=== PATIENT | male | born 1945 | race Caucasian/White ===

== ENCOUNTER → 2017-07-15 | Outpatient (CLI) | payer MEDICARE ==
--- NOTE | 2017-07-15 15:26 | REP ---
Clinical: Follow-up pulmonary nodules. Comparison: 05/08/2016. Findings: The lung louise are well-aerated and again demonstrate mild emphysematous changes along with minimal scattered stable scarring primarily involving the medial right middle lobe. The previously identified nodules measuring up to 4 mm are unchanged in size. No new nodule, mass or consolidation is appreciated. No pleural effusion/reaction or pneumothorax. No obvious adenopathy. Tracheobronchial tree is patent. Mediastinum demonstrates mild atherosclerotic changes to the thoracic aorta. No evidence for cardiomegaly or pericardial effusion. Limited evaluation of the upper abdomen demonstrates normal bilateral adrenal glands. The surrounding musculoskeletal structures are without focal osseous abnormality. Impression: 1. Few scattered small densities are unchanged in size and no new lesions are appreciated. A minuscule 2 mm densities in the left hemithorax demonstrates central calcification and these findings likely represent sequelae of prior granulomas disease and scarring. 2. No acute or significant mediastinal or pleuroparenchymal process appreciated. Signed by Tavares Hoskins MD 07/15/2017 03:17 P
== END ==
LOC: M RAD 14:24
PROVIDERS: ATTEND Internal Medicine Pulmonary Disease
DX: R91.8 Other nonspecific abnormal finding of lung field (principal)

== ENCOUNTER → 2017-09-15 | Outpatient (CLI) | payer MEDICARE ==
[2017-09-15 13:44] LABS: ALBUMIN 3.9 GM/DL (3.2-5.2); ALKALINE PHOSPHATASE 68 U/L (45-117); ALT/SGPT 33 U/L (12-78); ANION GAP 6 MEQ/L (8-16); AST/SGOT 23 U/L (7-37); BILIRUBIN,TOTAL 0.8 MG/DL (0.2-1.0); BLOOD UREA NITROGEN 19 MG/DL (7-18); CALCIUM LEVEL 9.2 MG/DL (8.8-10.2); CARBON DIOXIDE LEVEL 29 MEQ/L (21-32); CHLORIDE LEVEL 110 MEQ/L (98-107); CHOLESTEROL LEVEL 237 MG/DL (<200); CREATININE FOR GFR 1.04 MG/DL (0.70-1.30); GLOMERULAR FILTRATION RATE > 60.0 (>42); GLUCOSE, FASTING 95 MG/DL (83-110); POTASSIUM SERUM 5.1 MEQ/L (3.5-5.1); SODIUM LEVEL 145 MEQ/L (136-145); TOTAL PROTEIN 6.5 GM/DL (6.4-8.2); TRIGLYCERIDES LEVEL 151 MG/DL (<150)
== END ==
LOC: M WUC 08:48
PROVIDERS: ATTEND Emergency Medicine
DX: E78.2 Mixed hyperlipidemia (principal)

== ENCOUNTER → 2018-09-21 | Outpatient (CLI) | payer MEDICARE ==
[2018-09-21 09:17] LABS: ALBUMIN 3.6 GM/DL (3.2-5.2); ALBUMIN/GLOBULIN RATIO 1.09 (1.00-1.93); ALKALINE PHOSPHATASE 95 U/L (45-117); ALT/SGPT 28 U/L (12-78); ANION GAP 5 MEQ/L (8-16); AST/SGOT 19 U/L (7-37); BILIRUBIN,TOTAL 0.8 MG/DL (0.2-1.0); BLOOD UREA NITROGEN 14 MG/DL (7-18); CALCIUM LEVEL 9.1 MG/DL (8.8-10.2); CARBON DIOXIDE LEVEL 30 MEQ/L (21-32); CHLORIDE LEVEL 107 MEQ/L (98-107); CHOLESTEROL LEVEL 206 MG/DL (<200); CHOLESTEROL RISK RATIO 3.961 (<5); CREATININE FOR GFR 1.03 MG/DL (0.70-1.30); GLOMERULAR FILTRATION RATE > 60.0 (>42); GLUCOSE, FASTING 103 MG/DL (70-100); HDL CHOLESTEROL 52 MG/DL (>40); LDL CHOLESTEROL 123 MG/DL (<100); NON-HDL-C 154 MG/DL; POTASSIUM SERUM 4.3 MEQ/L (3.5-5.1); SODIUM LEVEL 142 MEQ/L (136-145); TOTAL PROTEIN 6.9 GM/DL (6.4-8.2); TRIGLYCERIDES LEVEL 156 MG/DL (<150)
== END ==
LOC: M WUC 08:16
DX: E78.2 Mixed hyperlipidemia (principal)
CPT/HCPCS: 80053

== ENCOUNTER → 2018-10-04 | Outpatient (CLI) | payer MEDICARE ==
[2018-10-04 12:43] LABS: BASO % 0.6 % (0.0-1.0); EOS # 0.2 10^3/uL (0.0-0.50); EOS % 3.7 % (0.0-3.0); HEMATOCRIT 38.3 % (42.0-52.0); HEMOGLOBIN 12.2 g/dl (13.5-17.5); IMMATURE GRANULOCYTE % 0.3 % (0-3.0); LYMPH # 1.8 10^3/uL (1.5-4.5); LYMPH % 28.1 % (24.0-44.0); MEAN CORPUSCULAR HEMOGLOBIN 27.7 pg (27.0-33.0); MEAN CORPUSCULAR HGB CONC 31.9 g/dl (32.0-36.5); MONO # 0.5 10^3/uL (0.0-0.8); MONO % 6.9 % (0.0-5.0); NEUTROPHILS # 3.9 10^3/uL (1.8-7.7); NEUTROPHILS % 60.4 % (36.0-66.0); PLATELET COUNT, AUTOMATED 300 10^3/uL (150-450); RED CELL DISTRIBUTION WIDTH 14.6 % (11.5-14.5); WHITE BLOOD COUNT 6.5 10^3/uL (4.0-10.0)
== END ==
LOC: M WUC 10:24
DX: J44.9 Chronic obstructive pulmonary disease, unspecified (principal)
CPT/HCPCS: 85025

== ENCOUNTER → 2018-10-05 | Outpatient (CLI) | payer MEDICARE ==
[2018-10-05 16:39] LABS: FERRITIN 137 NG/ML (26-388); IRON (FE) 68 UG/DL (65-175); PERCENT SATURATION 19.5 % (19.7-50.0); TOTAL IRON BINDING CAPACITY 349 UG/DL (250-450)
[2018-10-05 16:47] LABS: FOLATE 13.1 NG/ML; VITAMIN B12 LEVEL 559 PG/ML
== END ==
LOC: M WUC 11:46
DX: D64.9 Anemia, unspecified (principal)
CPT/HCPCS: 82746

== ENCOUNTER → 2018-12-01 | Outpatient (CLI) | payer MEDICARE ==
--- NOTE | 2018-12-01 17:03 | REP ---
Chest x-ray: Two views. History: Cough. Comparison chest CT study is from July 15, 2017. Findings: In the interval since the prior study a cardiac valve prosthesis appears to have been inserted. There is no evidence of sternotomy however. The lungs are somewhat hyperinflated but free of infiltrate. Mild linear fibrosis is seen in the bases bilaterally. Pulmonary vasculature is not increased. Pleural angles are sharp. Heart size is normal. There are degenerative changes in the thoracic spine. Impression: No active disease. Electronically Signed by Giovanny Cruz MD 12/01/2018 05:30 P
== END ==
LOC: M SMT 14:57
PROVIDERS: ATTEND Internal Medicine Pulmonary Disease
DX: R05 Cough (principal)

== ENCOUNTER → 2018-12-07 | Outpatient (CLI) | payer MEDICARE ==
[2018-12-07 12:44] LABS: BLOOD UREA NITROGEN 20 MG/DL (7-18); CREATININE FOR GFR 1.12 MG/DL (0.70-1.30); GLOMERULAR FILTRATION RATE > 60.0 (>42)
== END ==
LOC: M WUC 10:05
PROVIDERS: ATTEND Internal Medicine Pulmonary Disease
DX: R05 Cough (principal)

== ENCOUNTER → 2018-12-13 | Outpatient (CLI) | payer MEDICARE ==
[~2018-12-13] MED LIST: METHACHOLINE KIT (J7674) INH ONE
--- NOTE | 2018-12-13 14:28 | PFTRPT ---
Site: [facility], [address] [place], [address] ID: [id number] Name: BEVERLY PALMA Visit Date: 12/13/2018 Second ID: [id number] Referring Doctor: Júnior WALTERS, Anna Soria Reviewing Doctor: Edson Robles MD [facility] Faculty Assistant: Joao STINSON, JEANETTE Age: 73 : 1945 Sex: Male Race: Height: 72.00 Inches Weight: 219.00 Lbs BSA: 2.21 Order IDs: [id number] Requested Test(s): <RESP-PFT.BROCHOPROV> Diagnosis: R05 test appear to be valid, although the ATS standard for "end of test" was not met. Pt was given eight puffs of albuterol for post bronchodilator. Review Status: Not Reviewed Pre-Bronch Post-Bronch Pred Actual %Pred Actual %Chng SPIROMETRY FVC (L) 4.61 3.60 77 3.27 -9 FEV1 (L) 3.36 2.06 61 1.87 -9 FEV1/FVC (%) 73 57 78 57 FEF 25% (L/sec) 7.45 3.27 43 2.93 -10 FEF 50% (L/sec) 4.12 1.14 27 0.74 -34 FEF 75% (L/sec) 1.18 0.29 24 0.20 -31 FEF 25-75% (L/sec) 2.46 0.78 31 0.54 -30 FEF Max (L/sec) 8.38 6.22 74 5.67 -8 FIVC (L) 3.45 2.63 -23 FIF 50% (L/sec) 4.35 4.78 109 3.32 -30 FIF Max (L/sec) 4.88 4.54 -6 Expiratory Time (sec) 8.74 8.07 -7 Back Extrap Vol (L) 0.05 0.06 20 Time To FEFmax (sec) 0.064 0.067 4
== END ==
LOC: M CARPUL 09:01
PROVIDERS: ATTEND Internal Medicine Pulmonary Disease
DX: R05 Cough (principal)
CPT/HCPCS: 94070; 95070; J7674

== ENCOUNTER → 2018-12-15 | Outpatient (CLI) | payer MEDICARE ==
[~2018-12-15] MED LIST changes: +ISOVUE-370 76% 100ML VIAL (Q9967) As Ordered ONE; -METHACHOLINE KIT (J7674) INH ONE
--- NOTE | 2018-12-16 05:39 | REP ---
Clinical: Cough. Technique: Axial contrast enhanced images from the thoracic inlet to the upper abdomen with coronal and sagittal re-formations using 100 ml Isovue 370 intravenous contrast material. Comparison: 07/15/2017, 08/01/2015. Findings: Scattered areas of scarring at the bilateral apices and lung bases remain unchanged. Early moderate emphysematous changes to the upper lobes noted. Few scattered calcified and noncalcified nodular lesions up to 5 mm remains stable and most compatible with chronic granulomatous changes. No acute consolidation, significant nodule or mass lesion. No pleural effusion. No pneumothorax. Tracheobronchial tree is patent. No axillary, hilar, or mediastinal adenopathy. The mediastinum demonstrates atherosclerotic changes to the thoracic aorta and coronary arteries without aortic aneurysm/dissection, cardiomegaly or pericardial effusion. Surrounding musculoskeletal structures are intact. Limited upper abdomen demonstrates a stable nodular appearance to the bilateral adrenal glands along with incompletely imaged left renal hypodensity suggesting cyst. Impression: 1. Findings suggest chronic changes related to granulomatous disease early mild upper lobe emphysematous changes and scattered chronic scarring. 2. No acute mediastinal or pleuroparenchymal process. Electronically Signed by Tavares Hoskins MD 12/16/2018 05:31 A
== END ==
LOC: M RAD 10:38
PROVIDERS: ATTEND Internal Medicine Pulmonary Disease
DX: R05 Cough (principal)
CPT/HCPCS: 71260; Q9967

== ENCOUNTER → 2019-09-12 | Outpatient (CLI) | payer MEDICARE ==
[2019-09-12 13:09] LABS: BLOOD UREA NITROGEN 21 MG/DL (7-18); CALCIUM LEVEL 9.5 MG/DL (8.8-10.2); CARBON DIOXIDE LEVEL 31 MEQ/L (21-32); CHLORIDE LEVEL 106 MEQ/L (98-107); CHOLESTEROL LEVEL 211 MG/DL (<200); CHOLESTEROL RISK RATIO 3.576 (<5); GLOMERULAR FILTRATION RATE > 60.0 (>42); GLUCOSE, FASTING 90 MG/DL (70-100); HDL CHOLESTEROL 59 MG/DL (>40); LDL CHOLESTEROL 120 MG/DL (<100); NON-HDL-C 152 MG/DL; POTASSIUM SERUM 4.4 MEQ/L (3.5-5.1); SODIUM LEVEL 141 MEQ/L (136-145); TRIGLYCERIDES LEVEL 161 MG/DL (<150)
[2019-09-12 13:11] LABS: HEMATOCRIT 41.3 % (42.0-52.0); HEMOGLOBIN 13.3 g/dl (13.5-17.5); MEAN CORPUSCULAR HEMOGLOBIN 30.8 pg (27.0-33.0); MEAN CORPUSCULAR HGB CONC 32.2 g/dl (32.0-36.5); MEAN CORPUSCULAR VOLUME 95.6 fl (80.0-96.0); PLATELET COUNT, AUTOMATED 225 10^3/uL (150-450); RED BLOOD COUNT 4.32 10^6/uL (4.30-6.10); WHITE BLOOD COUNT 6.8 10^3/uL (4.0-10.0)
== END ==
LOC: M WUC 11:17
PROVIDERS: ATTEND Nurse Practitioner Family
DX: I34.0 Nonrheumatic mitral (valve) insufficiency (principal); E78.00 Pure hypercholesterolemia, unspecified

== ENCOUNTER → 2019-09-12 | Outpatient (CLI) | payer MEDICARE ==
[2019-09-12 13:12] LABS: ALBUMIN 3.9 GM/DL (3.2-5.2); ALT/SGPT 33 U/L (12-78); BILIRUBIN,TOTAL 1.1 MG/DL (0.2-1.0); BLOOD UREA NITROGEN 21 MG/DL (7-18); CALCIUM LEVEL 9.3 MG/DL (8.8-10.2); CARBON DIOXIDE LEVEL 30 MEQ/L (21-32); CHLORIDE LEVEL 106 MEQ/L (98-107); CHOLESTEROL LEVEL 196 MG/DL (<200); CHOLESTEROL RISK RATIO 3.629 (<5); CREATININE FOR GFR 1.15 MG/DL (0.70-1.30); GLOMERULAR FILTRATION RATE > 60.0 (>42); GLUCOSE, FASTING 88 MG/DL (70-100); HDL CHOLESTEROL 54 MG/DL (>40); LDL CHOLESTEROL 110 MG/DL (<100); NON-HDL-C 142 MG/DL; POTASSIUM SERUM 4.4 MEQ/L (3.5-5.1); SODIUM LEVEL 141 MEQ/L (136-145); TOTAL PROTEIN 6.7 GM/DL (6.4-8.2); TRIGLYCERIDES LEVEL 160 MG/DL (<150)
== END ==
LOC: M WUC 11:21
PROVIDERS: ATTEND Physician Assistant
DX: Z00.00 Encounter for general adult medical examination without abnormal findings (principal); E78.2 Mixed hyperlipidemia

== ENCOUNTER → 2020-08-28 | Outpatient (CLI) | payer MEDICARE ==
[2020-08-28 11:16] LABS: BASO % 0.6 % (0.0-1.0); EOS # 0.1 10^3/uL (0.0-0.5); HEMATOCRIT 44.2 % (42.0-52.0); LYMPH # 1.8 10^3/uL (1.5-5.0); LYMPH % 26.3 % (24.0-44.0); MEAN CORPUSCULAR HEMOGLOBIN 30.6 pg (27.0-33.0); MEAN CORPUSCULAR HGB CONC 31.7 g/dl (32.0-36.5); MEAN CORPUSCULAR VOLUME 96.5 fl (80.0-96.0); MONO # 0.5 10^3/uL (0.0-0.8); MONO % 7.7 % (0.0-5.0); NEUTROPHILS # 4.4 10^3/uL (1.5-8.5); NEUTROPHILS % 63.1 % (36.0-66.0); PLATELET COUNT, AUTOMATED 219 10^3/uL (150-450); RED BLOOD COUNT 4.58 10^6/uL (4.30-6.10)
[2020-08-28 12:01] LABS: ALBUMIN 4.1 GM/DL (3.2-5.2); ALT/SGPT 40 U/L (12-78); BILIRUBIN,TOTAL 0.9 MG/DL (0.2-1.0); BLOOD UREA NITROGEN 14 MG/DL (7-18); CALCIUM LEVEL 9.5 MG/DL (8.8-10.2); CARBON DIOXIDE LEVEL 28 MEQ/L (21-32); CHLORIDE LEVEL 109 MEQ/L (98-107); CHOLESTEROL LEVEL 183 MG/DL (<200); CHOLESTEROL RISK RATIO 3.155 (<5); CREATININE FOR GFR 1.08 MG/DL (0.70-1.30); GLOMERULAR FILTRATION RATE > 60.0 (>42); GLUCOSE, FASTING 81 MG/DL (70-100); HDL CHOLESTEROL 58 MG/DL (>40); LDL CHOLESTEROL 96 MG/DL (<100); NON-HDL-C 125 MG/DL; SODIUM LEVEL 143 MEQ/L (136-145); TOTAL PROTEIN 7.1 GM/DL (6.4-8.2); TRIGLYCERIDES LEVEL 147 MG/DL (<150)
== END ==
LOC: M WUC 08:34
PROVIDERS: ATTEND Family Medicine
DX: J44.9 Chronic obstructive pulmonary disease, unspecified (principal); E78.5 Hyperlipidemia, unspecified; I10 Essential (primary) hypertension

== ENCOUNTER → 2020-11-13 | Outpatient (CLI) | payer MEDICARE ==
[2020-11-13 16:23] LABS: FREE T4 1.12 NG/DL (0.76-1.46); RHEUMATOID FACTOR QUANT < 10.0 IU/ML (<15.0); THYROID STIMULATING HORMONE 0.883 uIU/ML (0.358-3.740); TOTAL PROTEIN 6.6 GM/DL (6.4-8.2); VITAMIN B12 LEVEL 560 PG/ML
[2020-11-13 16:24] LABS: FOLATE > 24.0 NG/ML
[2020-11-13 16:37] LABS: HEMOGLOBIN A1c 5.3 %
[2020-11-14 15:43] LABS: ALBUMIN % 63.6 % (55.8-66.1); ALPHA-1-GLOBULIN % 4.9 % (2.9-4.9); ALPHA-1-GLOBULINS 0.32 GM/DL (0.17-0.41); ALPHA-2-GLOBULINS 0.69 GM/DL (0.42-0.99); ALPHA-2-GLOBULINS % 10.4 % (7.1-11.8); BETA-1-GLOBULINS 0.42 GM/DL (0.28-0.60); BETA-1-GLOBULINS % 6.3 % (4.7-7.2); BETA-2-GLOBULINS 0.27 GM/DL (0.19-0.55); BETA-2-GLOBULINS % 4.1 % (3.2-6.5); GAMMA GLOBULIN % 10.7 % (11.1-18.8); GAMMA GLOBULINS 0.71 GM/DL (0.65-1.58)
== END ==
LOC: M WUC 11:34
PROVIDERS: ATTEND Psychiatry & Neurology Neurology
DX: E07.9 Disorder of thyroid, unspecified (principal); G90.09 Other idiopathic peripheral autonomic neuropathy; R20.2 Paresthesia of skin

== ENCOUNTER → 2021-01-22 | Outpatient (CLI) | payer MEDICARE ==
--- NOTE | 2021-01-22 10:59 | REP ---
INDICATION: ABNORMAL FINDING OF LUNG FIELD. COMPARISON: Chest CT studies dated 07/15/2017 and 12/15/2018. TECHNIQUE: Chest CT without IV contrast. FINDINGS: There is a 4 mm left upper lobe lung nodule on image 44, unchanged from prior studies. There is a 5 mm right lower lobe lung nodule on image 66, unchanged from the prior studies. There is a 3 mm right lower lobe lung nodule on image 67, unchanged from the prior studies. There is a 5 mm pleural-based right lower lobe lung nodule on image 68, unchanged from the prior studies. No new nodules are identified. No enlarging nodules are identified. There are no acute infiltrates or pleural effusions. There are scattered small bulla throughout the lung louise bilaterally. There is no mediastinal or axillary lymph node enlargement. In the absence of IV contrast the study is insensitive for hilar lymph node enlargement. The thoracic aorta is unremarkable except for occasional calcified atheroma. The cardiac size is normal. There is no pericardial effusion. There appears to be a mitral valve replacement. Upper abdomen: There is no adrenal mass or nodule. The visualized areas of the unenhanced liver, gallbladder, pancreas and spleen are unremarkable. IMPRESSION: There are 4 stable lung nodules as described in the body of the report. There are no new lung nodules. There are no enlarging lung nodules. No infiltrates or effusions. Mitral valve replacement. <Electronically signed by Walt Dickinson > 01/22/21 [id number]
== END ==
LOC: M RAD 09:14
PROVIDERS: ATTEND Internal Medicine Pulmonary Disease
DX: R91.8 Other nonspecific abnormal finding of lung field (principal); Z95.4 Presence of other heart-valve replacement

== ENCOUNTER → 2021-05-13 | Outpatient (CLI) | payer MEDICARE ==
[2021-05-13 10:59] LABS: ALBUMIN 3.8 GM/DL (3.2-5.2); ALT/SGPT 56 U/L (12-78); BILIRUBIN,TOTAL 1.5 MG/DL (0.2-1.0); BLOOD UREA NITROGEN 14 MG/DL (7-18); CALCIUM LEVEL 8.9 MG/DL (8.8-10.2); CARBON DIOXIDE LEVEL 25 MEQ/L (21-32); CHLORIDE LEVEL 110 MEQ/L (98-107); CHOLESTEROL LEVEL 144 MG/DL (<200); CHOLESTEROL RISK RATIO 2.028 (<5); CREATININE FOR GFR 0.97 MG/DL (0.70-1.30); GLOMERULAR FILTRATION RATE > 60.0 (>42); GLUCOSE, FASTING 98 MG/DL (70-100); HDL CHOLESTEROL 71 MG/DL (>40); LDL CHOLESTEROL 59 MG/DL (<100); NON-HDL-C 73 MG/DL; POTASSIUM SERUM 4.1 MEQ/L (3.5-5.1); SODIUM LEVEL 143 MEQ/L (136-145); TOTAL PROTEIN 6.5 GM/DL (6.4-8.2); TRIGLYCERIDES LEVEL 68 MG/DL (<150)
== END ==
LOC: M WUC 08:04
PROVIDERS: ATTEND Nurse Practitioner Family
DX: E78.00 Pure hypercholesterolemia, unspecified (principal)

== ENCOUNTER → 2021-09-05 | Outpatient (CLI) | payer MEDICARE ==
[2021-09-05 09:52] LABS: BASO # 0.1 10^3/uL (0.0-0.2); BASO % 0.8 % (0.0-1.0); EOS # 0.1 10^3/uL (0.0-0.5); EOS % 1.9 % (0.0-3.0); HEMATOCRIT 41.3 % (42.0-52.0); HEMOGLOBIN 13.6 g/dl (13.5-17.5); LYMPH % 27.6 % (24.0-44.0); MEAN CORPUSCULAR HEMOGLOBIN 31.3 pg (27.0-33.0); MEAN CORPUSCULAR HGB CONC 32.9 g/dl (32.0-36.5); MEAN CORPUSCULAR VOLUME 94.9 fl (80.0-96.0); MONO # 0.5 10^3/uL (0.0-0.8); MONO % 7.1 % (2.0-8.0); NEUTROPHILS # 4.5 10^3/uL (1.5-8.5); NEUTROPHILS % 62.3 % (36.0-66.0); PLATELET COUNT, AUTOMATED 203 10^3/uL (150-450); RED BLOOD COUNT 4.35 10^6/uL (4.30-6.10); WHITE BLOOD COUNT 7.2 10^3/uL (4.0-10.0)
[2021-09-05 10:18] LABS: ALBUMIN 3.8 GM/DL (3.2-5.2); ALT/SGPT 50 U/L (12-78); BILIRUBIN,TOTAL 0.9 MG/DL (0.2-1.0); BLOOD UREA NITROGEN 19 MG/DL (7-18); CALCIUM LEVEL 9.2 MG/DL (8.8-10.2); CARBON DIOXIDE LEVEL 32 MEQ/L (21-32); CHLORIDE LEVEL 107 MEQ/L (98-107); CHOLESTEROL LEVEL 162 MG/DL (<200); CHOLESTEROL RISK RATIO 2.492 (<5); CREATININE FOR GFR 1.05 MG/DL (0.70-1.30); GLOMERULAR FILTRATION RATE > 60.0 (>42); GLUCOSE, FASTING 99 MG/DL (70-100); HDL CHOLESTEROL 65 MG/DL (>40); LDL CHOLESTEROL 80 MG/DL (<100); NON-HDL-C 97 MG/DL; POTASSIUM SERUM 4.4 MEQ/L (3.5-5.1); SODIUM LEVEL 142 MEQ/L (136-145); TOTAL PROTEIN 6.6 GM/DL (6.4-8.2); TRIGLYCERIDES LEVEL 84 MG/DL (<150)
== END ==
LOC: M WUC 08:25
PROVIDERS: ATTEND Family Medicine
DX: I10 Essential (primary) hypertension (principal); J44.9 Chronic obstructive pulmonary disease, unspecified; I34.0 Nonrheumatic mitral (valve) insufficiency

== ENCOUNTER → 2022-04-23 | Outpatient (CLI) | payer MEDICARE ==
[~2022-04-23] MED LIST changes: +ASPI81TA27 PO; +BREO1INH3 INH; +IBUP-1114 PO; -ISOVUE-370 76% 100ML VIAL (Q9967) As Ordered ONE; +MULTTAB86 PO; +ROSU20TA5 PO; +TAMS1CAP17 PO
== END ==
LOC: M LABSMTC 09:18
PROVIDERS: ATTEND Anesthesiology
DX: Z01.818 Encounter for other preprocedural examination (principal); Z11.52 Encounter for screening for COVID-19

== ENCOUNTER → 2022-04-28 | Outpatient (CLI) | payer MEDICARE ==
[2022-04-28 16:08] LABS: BASO # 0.1 10^3/uL (0.0-0.2); BASO % 0.7 % (0.0-1.0); EOS # 0.1 10^3/uL (0.0-0.5); EOS % 1.9 % (0.0-3.0); HEMATOCRIT 41.5 % (42.0-52.0); HEMOGLOBIN 13.3 g/dl (13.5-17.5); LYMPH % 26.8 % (24.0-44.0); MEAN CORPUSCULAR HEMOGLOBIN 30.9 pg (27.0-33.0); MEAN CORPUSCULAR VOLUME 96.3 fl (80.0-96.0); MONO # 0.5 10^3/uL (0.0-0.8); MONO % 7.1 % (2.0-8.0); NEUTROPHILS # 4.7 10^3/uL (1.5-8.5); NEUTROPHILS % 63.2 % (36.0-66.0); PLATELET COUNT, AUTOMATED 194 10^3/uL (150-450); RED BLOOD COUNT 4.31 10^6/uL (4.30-6.10); WHITE BLOOD COUNT 7.4 10^3/uL (4.0-10.0)
[2022-04-28 16:47] LABS: ALBUMIN 3.9 GM/DL (3.2-5.2); ALT/SGPT 34 U/L (12-78); BLOOD UREA NITROGEN 23 MG/DL (7-18); CALCIUM LEVEL 8.7 MG/DL (8.8-10.2); CARBON DIOXIDE LEVEL 28 MEQ/L (21-32); CHLORIDE LEVEL 106 MEQ/L (98-107); CREATININE FOR GFR 1.07 MG/DL (0.70-1.30); GLOMERULAR FILTRATION RATE > 60.0 (>42); GLUCOSE, FASTING 81 MG/DL (70-100); POTASSIUM SERUM 4.2 MEQ/L (3.5-5.1); SODIUM LEVEL 142 MEQ/L (136-145); TOTAL PROTEIN 6.6 GM/DL (6.4-8.2)
== END ==
LOC: M WUC 11:31
PROVIDERS: ATTEND Family Medicine
DX: Z01.818 Encounter for other preprocedural examination (principal); K40.90 Unilateral inguinal hernia, without obstruction or gangrene, not specified as recurrent; R10.32 Left lower quadrant pain

== ENCOUNTER → 2022-05-25 | Outpatient (CLI) | payer MEDICARE | LOC: M LABSMTC 09:36 | PROVIDERS: ATTEND Anesthesiology | DX: Z01.812 Encounter for preprocedural laboratory examination (principal) ==

== ENCOUNTER 2022-05-29 07:55 | Day surgery (SDC) | payer MEDICARE ==
[~2022-05-29] VITALS: Ht 188 cm; Wt 86.5 kg
[~2022-05-29 07:55] MED LIST changes: +NS 1,000 ML IV ONE; +ceFAZolin SOD 2 GM in IV 1 EA IV ONE
[2022-05-29] MEDS ORDERED: LR 1,000 ML IV SCH ×2 (08:20→12:45)
[2022-05-29] MEDS ORDERED: BUPIVACAINE/EPIN 0.25% 30 ML VIAL As Ordered ONE (10:21)
[2022-05-29] MEDS ORDERED: LIDOCAINE 2% 100MG/5ML SDV (FOR ANES.) As Ordered ONE (11:14)
[2022-05-29] MEDS ORDERED: SUGAMMADEX SODIUM 500 MG/5 ML VIAL (BRIDION) As Ordered ONE (11:14)
[2022-05-29] MEDS ORDERED: ONDANSETRON 4MG 2ML VIAL As Ordered ONE (11:14)
[2022-05-29] MEDS ORDERED: MIDAZOLAM INJ 2MG/2ML VIAL (J2250 PER 1MG) As Ordered ONE (11:14)
[2022-05-29] MEDS ORDERED: fentaNYL 100 MCG/2 ML INJECTION As Ordered ONE ×2 (11:14→11:26)
[2022-05-29] MEDS ORDERED: propofoL 200 MG/20 ML VIAL As Ordered ONE (11:14)
[2022-05-29] MEDS ORDERED: ROCURONIUM BROMIDE 50 MG/5 ML VIAL As Ordered ONE ×2 (11:14→11:18)
[2022-05-29] MEDS ORDERED: dexameTHASONE 4 MG/ML 1ML VIAL (J1100 PER 1MG) As Ordered ONE (11:14)
[2022-05-29] MEDS ORDERED: ACETAMINOPHEN 1000MG 100ML IV BTL (OFIRMEV) (J0131 PER 10MG) As Ordered ONE (11:15)
[2022-05-29] MEDS ORDERED: KETOROLAC 60MG 2ML VIAL As Ordered ONE (12:24)
[2022-05-29] MEDS ORDERED: fentaNYL 100 MCG/2 ML INJECTION IV PRN (12:45)
[2022-05-29] MEDS ORDERED: ONDANSETRON 4MG 2ML VIAL IV PRN (12:45)
[2022-05-29] MEDS ORDERED: oxyCODONE 5MG TAB PO PRN (12:45)
[2022-05-29] MEDS ORDERED: ALBUTEROL SULFATE 2.5 MG/0.5 ML INH NEB SOLN INH ONE (12:45)
[2022-05-29] MEDS ORDERED: HYDROMORPHONE HCL 0.5 MG/ 0.5 ML SYRINGE (J1170 PER 1) IV PRN (12:45)
[2022-05-29] MEDS ORDERED: traMADol 50 MG TAB PO PRN (13:35)
[2022-05-29] MEDS ORDERED: NS 1,000 ML IV SCH (13:35)
[2022-05-29 14:16] VITALS: BP 122/65
== END 2022-05-29 14:37 | disposition home or self-care (01) ==
LOC: M SDC 07:55
PROVIDERS: ATTEND Surgery
DX: K40.00 Bilateral inguinal hernia, with obstruction, without gangrene, not specified as recurrent (principal); J44.9 Chronic obstructive pulmonary disease, unspecified; Z87.891 Personal history of nicotine dependence; Z79.51 Long term (current) use of inhaled steroids; E78.5 Hyperlipidemia, unspecified
CPT/HCPCS: 49650; C1781; J0131; J0690; J1100; J1885; J2250; J2405; J3010; S2900

== ENCOUNTER → 2022-12-25 | Outpatient (REF) | payer MEDICARE ==
[~2022-12-25] MED LIST changes: -NS 1,000 ML IV ONE; -ceFAZolin SOD 2 GM in IV 1 EA IV ONE
[2022-12-25 16:54] LABS: BLOOD UREA NITROGEN 28 MG/DL (9-23); CREATININE FOR GFR 1.15 MG/DL (0.70-1.30); GLOMERULAR FILTRATION RATE > 60.0 (>42)
== END ==
LOC: M LABWUC 16:05
PROVIDERS: ATTEND Psychiatry & Neurology Neurology
DX: I10 Essential (primary) hypertension (principal)

== ENCOUNTER → 2023-03-15 | Outpatient (CLI) | payer MEDICARE ==
[2023-03-15 13:12] LABS: BASO # 0.1 10^3/uL (0.0-0.2); BASO % 0.8 % (0.0-1.0); EOS # 0.1 10^3/uL (0.0-0.5); HEMATOCRIT 40.7 % (42.0-52.0); HEMOGLOBIN 13.2 g/dl (13.5-17.5); LYMPH # 1.6 10^3/uL (1.5-5.0); LYMPH % 26.5 % (24.0-44.0); MEAN CORPUSCULAR HEMOGLOBIN 30.8 pg (27.0-33.0); MEAN CORPUSCULAR HGB CONC 32.4 g/dl (32.0-36.5); MEAN CORPUSCULAR VOLUME 94.9 fl (80.0-96.0); MONO # 0.4 10^3/uL (0.0-0.8); MONO % 7.1 % (2.0-8.0); NEUTROPHILS # 3.7 10^3/uL (1.5-8.5); NEUTROPHILS % 63.3 % (36.0-66.0); PLATELET COUNT, AUTOMATED 169 10^3/uL (150-450); RED BLOOD COUNT 4.29 10^6/uL (4.30-6.10); WHITE BLOOD COUNT 5.9 10^3/uL (4.0-10.0)
[2023-03-15 13:41] LABS: ALBUMIN 4.1 G/DL (3.2-5.2); ALKALINE PHOSPHATASE 67 U/L (46-116); ALT/SGPT 29 U/L (7.0-40); AST/SGOT 36 U/L (<34); BILIRUBIN,TOTAL 1.3 MG/DL (0.3-1.2); BLOOD UREA NITROGEN 29 MG/DL (9-23); CALCIUM LEVEL 9.4 MG/DL (8.3-10.6); CARBON DIOXIDE LEVEL 29 MMOL/L (20-31); CHLORIDE LEVEL 107 MMOL/L (98-107); CHOLESTEROL LEVEL 172 MG/DL (<200); CHOLESTEROL RISK RATIO 2.42 (<5); CREATININE FOR GFR 1.14 MG/DL (0.70-1.30); GLOMERULAR FILTRATION RATE > 60.0 (>42); GLUCOSE, FASTING 92 MG/DL (74-106); HDL CHOLESTEROL 70.9 MG/DL (>40); LDL CHOLESTEROL 87.1 MG/DL (<100); NON-HDL-C 101.1 MG/DL; POTASSIUM SERUM 4.8 MMOL/L (3.5-5.1); SODIUM LEVEL 142 MMOL/L (136-145); TOTAL PROTEIN 6.5 G/DL (5.7-8.2); TRIGLYCERIDES LEVEL 70 MG/DL (<150)
== END ==
LOC: M WUC 10:19
PROVIDERS: ATTEND Family Medicine
DX: I10 Essential (primary) hypertension (principal)

== ENCOUNTER 2023-10-06 18:34 | Emergency (ER) | payer MEDICARE ==
[~2023-10-06] VITALS: Ht 185.4 cm; Wt 91.4 kg
[~2023-10-06 18:34] MED LIST changes: -ROSU20TA5 PO; +ROSU20TA61 PO
[2023-10-06 18:41] VITALS: TEMP 98.2
[2023-10-06 19:33] LABS: BASO # 0.1 10^3/uL (0.0-0.2); EOS # 0.2 10^3/uL (0.0-0.5); EOS % 2.8 % (0.0-3.0); HEMATOCRIT 37.9 % (42.0-52.0); LYMPH # 1.9 10^3/uL (1.5-5.0); LYMPH % 32.3 % (24.0-44.0); MEAN CORPUSCULAR HGB CONC 34.3 g/dl (32.0-36.5); MEAN CORPUSCULAR VOLUME 93.3 fl (80.0-96.0); MONO # 0.4 10^3/uL (0.0-0.8); NEUTROPHILS # 3.4 10^3/uL (1.5-8.5); NEUTROPHILS % 56.7 % (36.0-66.0); PLATELET COUNT, AUTOMATED 182 10^3/uL (150-450); RED BLOOD COUNT 4.06 10^6/uL (4.30-6.10)
[2023-10-06 20:11] LABS: CK-MB VALUE MASS 4.2 NG/ML (<3.6)
[2023-10-06 20:12] LABS: ETHYL ALCOHOL (ETHANOL) 0.122 % (0.000-0.010)
[2023-10-06 20:13] LABS: BLOOD UREA NITROGEN 20 MG/DL (9-23); CALCIUM LEVEL 8.9 MG/DL (8.3-10.6); CARBON DIOXIDE LEVEL 23 MMOL/L (20-31); CHLORIDE LEVEL 112 MMOL/L (98-107); CREATININE FOR GFR 0.87 MG/DL (0.70-1.30); GLOMERULAR FILTRATION RATE > 60.0 (>42); GLUCOSE, FASTING 83 MG/DL (74-106); MAGNESIUM LEVEL 2.1 MG/DL (1.8-2.4); POTASSIUM SERUM 3.9 MMOL/L (3.5-5.1); SODIUM LEVEL 147 MMOL/L (136-145)
[2023-10-06 20:15] LABS: FREE T4 1.29 NG/DL (0.89-1.76)
[2023-10-06] MEDS ORDERED: NS 1,000 ML IV ONE (20:15)
[2023-10-06 21:30] VITALS: O2SAT 98
[2023-10-06 21:31] VITALS: BP 164/98
[2023-10-06 22:02] LABS: CPK CREATINE PHOSPHOKINASE 324 U/L (46-171); MB/CK RELATIVE INDEX 1.29 (< OR =4)
[2023-10-06 22:23] LABS: THYROID STIMULATING HORMONE 1.012 uIU/ML (0.55-4.78)
== END 2023-10-06 21:58 | disposition home or self-care (01) ==
LOC: M ED 18:34 → EDBD 18:34 → M ED 21:58
DX: I95.1 Orthostatic hypotension (principal); I45.10 Unspecified right bundle-branch block; Z79.82 Long term (current) use of aspirin; Z79.1 Long term (current) use of non-steroidal anti-inflammatories (NSAID); Z79.899 Other long term (current) drug therapy

== ENCOUNTER → 2023-11-09 | Outpatient (CLI) | payer MEDICARE ==
[2023-11-09 13:18] LABS: BASO # 0.1 10^3/uL (0.0-0.2); BASO % 0.8 % (0.0-1.0); EOS # 0.2 10^3/uL (0.0-0.5); EOS % 2.7 % (0.0-3.0); HEMATOCRIT 39.3 % (42.0-52.0); LYMPH # 1.7 10^3/uL (1.5-5.0); LYMPH % 28.6 % (24.0-44.0); MEAN CORPUSCULAR HEMOGLOBIN 31.5 pg (27.0-33.0); MEAN CORPUSCULAR HGB CONC 33.1 g/dl (32.0-36.5); MEAN CORPUSCULAR VOLUME 95.2 fl (80.0-96.0); MONO # 0.4 10^3/uL (0.0-0.8); MONO % 7.4 % (2.0-8.0); NEUTROPHILS # 3.6 10^3/uL (1.5-8.5); NEUTROPHILS % 60.3 % (36.0-66.0); PLATELET COUNT, AUTOMATED 181 10^3/uL (150-450); RED BLOOD COUNT 4.13 10^6/uL (4.30-6.10); WHITE BLOOD COUNT 5.9 10^3/uL (4.0-10.0)
[2023-11-09 13:36] LABS: BLOOD UREA NITROGEN 19 MG/DL (9-23); CALCIUM LEVEL 9.2 MG/DL (8.3-10.6); CARBON DIOXIDE LEVEL 30 MMOL/L (20-31); CHLORIDE LEVEL 107 MMOL/L (98-107); CREATININE FOR GFR 0.97 MG/DL (0.70-1.30); GLOMERULAR FILTRATION RATE > 60.0 (>42); GLUCOSE, FASTING 82 MG/DL (74-106); SODIUM LEVEL 140 MMOL/L (136-145)
== END ==
LOC: M WUC 10:10
PROVIDERS: ATTEND Family Medicine
DX: R55 Syncope and collapse (principal)

== ENCOUNTER → 2024-03-21 | Outpatient (CLI) | payer MEDICARE ==
[2024-03-21 12:33] LABS: BASO # 0.1 10^3/uL (0.0-0.2); BASO % 0.9 % (0.0-1.0); EOS # 0.2 10^3/uL (0.0-0.5); HEMOGLOBIN 13.3 g/dl (13.5-17.5); LYMPH # 1.8 10^3/uL (1.5-5.0); LYMPH % 34.1 % (24.0-44.0); MEAN CORPUSCULAR HEMOGLOBIN 31.5 pg (27.0-33.0); MEAN CORPUSCULAR HGB CONC 33.3 g/dl (32.0-36.5); MEAN CORPUSCULAR VOLUME 94.8 fl (80.0-96.0); MONO # 0.4 10^3/uL (0.0-0.8); MONO % 7.9 % (2.0-8.0); NEUTROPHILS # 2.9 10^3/uL (1.5-8.5); NEUTROPHILS % 53.7 % (36.0-66.0); PLATELET COUNT, AUTOMATED 207 10^3/uL (150-450); RED BLOOD COUNT 4.22 10^6/uL (4.30-6.10); WHITE BLOOD COUNT 5.3 10^3/uL (4.0-10.0)
[2024-03-21 13:05] LABS: ALKALINE PHOSPHATASE 66 U/L (46-116); ALT/SGPT 35 U/L (7.0-40); AST/SGOT 32 U/L (<34); BILIRUBIN,TOTAL 1.3 MG/DL (0.3-1.2); BLOOD UREA NITROGEN 26 MG/DL (9-23); CALCIUM LEVEL 9.2 MG/DL (8.3-10.6); CARBON DIOXIDE LEVEL 27 MMOL/L (20-31); CHLORIDE LEVEL 108 MMOL/L (98-107); CHOLESTEROL LEVEL 162 MG/DL (<200); CHOLESTEROL RISK RATIO 2.65 (<5); CREATININE FOR GFR 1.11 MG/DL (0.70-1.30); GLOMERULAR FILTRATION RATE > 60.0 (>42); GLUCOSE, FASTING 107 MG/DL (74-106); LDL CHOLESTEROL 83.4 MG/DL (<100); POTASSIUM SERUM 4.2 MMOL/L (3.5-5.1); SODIUM LEVEL 143 MMOL/L (136-145); TOTAL PROTEIN 6.5 G/DL (5.7-8.2); TRIGLYCERIDES LEVEL 88 MG/DL (<150)
== END ==
LOC: M WUC 08:38
PROVIDERS: ATTEND Family Medicine
DX: I10 Essential (primary) hypertension (principal)

== ENCOUNTER → 2025-01-29 | Outpatient (CLI) | payer MEDICARE ==
[~2025-01-29] MED LIST changes: -ROSU20TA61 PO; +ROSU20TA86 PO
== END ==
LOC: M WUC 09:40
PROVIDERS: ATTEND Physician Assistant
DX: M25.571 Pain in right ankle and joints of right foot (principal); S82.401A Unspecified fracture of shaft of right fibula, initial encounter for closed fracture; X58.XXXA Exposure to other specified factors, initial encounter; Y92.9 Unspecified place or not applicable; Y93.9 Activity, unspecified; Y99.9 Unspecified external cause status

== ENCOUNTER → 2025-01-31 | Outpatient (REF) | payer MEDICARE ==
[2025-01-31 18:15] LABS: BASO % 0.6 % (0.0-1.0); EOS # 0.1 10^3/uL (0.0-0.5); HEMATOCRIT 38.6 % (42.0-52.0); HEMOGLOBIN 12.8 g/dl (13.5-17.5); LYMPH # 1.7 10^3/uL (1.5-5.0); MEAN CORPUSCULAR HEMOGLOBIN 31.2 pg (27.0-33.0); MEAN CORPUSCULAR HGB CONC 33.2 g/dl (32.0-36.5); MEAN CORPUSCULAR VOLUME 94.1 fl (80.0-96.0); MONO # 0.5 10^3/uL (0.0-0.8); MONO % 7.8 % (2.0-8.0); NEUTROPHILS # 4.2 10^3/uL (1.5-8.5); NEUTROPHILS % 63.4 % (36.0-66.0); PLATELET COUNT, AUTOMATED 235 10^3/uL (150-450); WHITE BLOOD COUNT 6.7 10^3/uL (4.0-10.0)
[2025-01-31 18:21] LABS: ALKALINE PHOSPHATASE 72 U/L (40-129); ALT/SGPT 32 U/L (7.0-40); AST/SGOT 35 U/L (<34); BILIRUBIN,TOTAL 1.7 MG/DL (0.3-1.2); BLOOD UREA NITROGEN 21 MG/DL (9-23); CALCIUM LEVEL 9.5 MG/DL (8.3-10.6); CARBON DIOXIDE LEVEL 26 MMOL/L (20-31); CHLORIDE LEVEL 104 MMOL/L (98-107); CHOLESTEROL LEVEL 159 MG/DL (<200); CHOLESTEROL RISK RATIO 2.85 (<5); CREATININE FOR GFR 1.05 MG/DL (0.70-1.30); GLOMERULAR FILTRATION RATE > 60.0 (>35); GLUCOSE, FASTING 94 MG/DL (74-106); HDL CHOLESTEROL 55.6 MG/DL (>40); LDL CHOLESTEROL 77.8 MG/DL (<100); NON-HDL-C 103.4 MG/DL; POTASSIUM SERUM 3.9 MMOL/L (3.5-5.1); SODIUM LEVEL 143 MMOL/L (136-145); TOTAL PROTEIN 6.8 G/DL (5.7-8.2); TRIGLYCERIDES LEVEL 128 MG/DL (<150)
== END ==
LOC: M LABWUC 17:55
PROVIDERS: ATTEND Family Medicine
DX: I10 Essential (primary) hypertension (principal)

== ENCOUNTER → 2025-10-01 | Outpatient (CLI) | payer MEDICARE ==
[2025-10-01 12:39] LABS: BASO # 0.1 10^3/uL (0.0-0.2); BASO % 0.8 % (0.0-1.0); EOS # 0.1 10^3/uL (0.0-0.5); EOS % 1.7 % (0.0-3.0); LYMPH # 1.8 10^3/uL (1.5-5.0); LYMPH % 27.0 % (24.0-44.0); MONO # 0.4 10^3/uL (0.0-0.8); MONO % 5.9 % (2.0-8.0); NEUTROPHILS # 4.3 10^3/uL (1.5-8.5); NEUTROPHILS % 64.4 % (36.0-66.0); PLATELET COUNT, AUTOMATED 226 10^3/uL (150-450)
[2025-10-01 13:12] LABS: ALT/SGPT 33.0 U/L (7.0-40); AST/SGOT 33.0 U/L (<34); CALCIUM LEVEL 8.9 MG/DL (8.3-10.6); CARBON DIOXIDE LEVEL 28.0 MMOL/L (20-31); CHLORIDE LEVEL 108.0 MMOL/L (98-107); CHOLESTEROL LEVEL 167.0 MG/DL (<200); CHOLESTEROL RISK RATIO 3.01 (<5); CREATININE FOR GFR 1.04 MG/DL (0.70-1.30); GLOMERULAR FILTRATION RATE 72.6 (>35); LDL CHOLESTEROL 80.3 MG/DL (<100); NON-HDL-C 111.7 MG/DL; POTASSIUM SERUM 4.4 MMOL/L (3.5-5.1); SODIUM LEVEL 146.0 MMOL/L (136-145); TRIGLYCERIDES LEVEL 157.0 MG/DL (<150)
== END ==
LOC: M WUC 10:14
PROVIDERS: ATTEND Family Medicine
DX: E78.2 Mixed hyperlipidemia (principal)